=== PATIENT | female | born 1975 | race Caucasian/White ===

== ENCOUNTER → 2024-10-19 | Outpatient (CLI) | payer MEDICAID, SELFPAY ==
--- NOTE | 2024-10-19 12:25 | XR_ITS ---
Examination: Wrist, right 3 views Technique: Wrist AP, oblique, lateral 3 views Date and time of exam: October 19, 2024 1302 hours INDICATIONS: Right hand and wrist swelling and pain beginning 2 months ago. FINDINGS: Moderate osteopenia Mild narrowing radiocarpal intercarpal and carpometacarpal joints No fracture No avascular necrosis No erosive arthritis IMPRESSION: Mild osteoarthritis
--- NOTE | 2024-10-19 12:25 | XR_ITS ---
Examination: Hand, right 3 views Technique: Hand AP, oblique, lateral 3 views Date and time of exam: October 19, 2024 1302 hours INDICATIONS: Right hand swelling and pain beginning 2 months ago FINDINGS: Moderate juxta-articular bone demineralization No fracture No avascular necrosis Mild osteoarthritis distal interphalangeal joints second through fifth digits and interphalangeal joint first digit No opaque foreign bodies IMPRESSION: Mild osteoarthritis
== END | disposition home or self-care (01) ==
PROVIDERS: PCP Physician Assistant Medical; Referring Provider Nurse Practitioner Gerontology; Visit Provider Nurse Practitioner Gerontology
DX: M19.042 Primary osteoarthritis, left hand (principal); M19.041 Primary osteoarthritis, right hand; M19.032 Primary osteoarthritis, left wrist; M19.031 Primary osteoarthritis, right wrist
CPT/HCPCS: 73110; 73130

== ENCOUNTER → 2025-09-10 | Outpatient (CLI) | payer MEDICAID, SELFPAY ==
--- NOTE | 2025-09-10 10:00 | XR_ITS ---
Examination: Screening digital mammography, bilateral Computer aided detection 3-D breast Tomosynthesis, bilateral Date and time of exam: 09/10/2025, 10:04 a.m. Comparisons: 03/31/2024 Indications: Screening Technique: Nonmagnified MLO, CC views of the breasts to been obtained, reconstructed from 3-D Tomosynthesis images. R2 computer aided detection program utilized for evaluation of suspicious masses and/or abnormal calcifications. 3-D Tomosynthesis images obtained. Technologist: Findings: There are scattered areas of fibroglandular density. Right retroareolar asymmetry seen on the CC view. Left medial asymmetry, 5 cm from the nipple on the cc view. Otherwise, no evidence of abnormal masses or suspicious calcifications. Impression: BI-RADS category 0: Incomplete assassment; need additional imaging evaluation.. Bilateral asymmetries as above. Spot compression views and possible ultrasound evaluation recommended.
== END | disposition home or self-care (01) ==
PROVIDERS: Referring Provider Physician Assistant Medical; Visit Provider Physician Assistant Medical
DX: Z12.31 Encounter for screening mammogram for malignant neoplasm of breast (principal); N64.89 Other specified disorders of breast; R92.8 Other abnormal and inconclusive findings on diagnostic imaging of breast
CPT/HCPCS: 77063; 77067